=== PATIENT | male | born 1935 | race Caucasian/White ===

== ENCOUNTER 2018-08-23 20:25 | Inpatient (IN) | payer MEDICARE ==
[~2018-08-23] VITALS: Ht 167.6 cm; Wt 64.1 kg
[2018-08-23] VITALS (8 sets, daily range): BP systolic 113–145; BP diastolic 46–76; Ht 167.6 cm; Wt 64.1 kg
--- NOTE | ~2018-08-23 | HEMODYNAMI ---
PATIENT:FEDERICO QUICK MEDICAL RECORD: [id number] : 37 LOCATION:[place] [address] ADMISSION DATE: 08/23/18 Generatedon:08/24/201810:45 Patient name: FEDERICO QUICK Patient #: [id number] SSN: : 1935 Date of study: 08/24/2018 Page: Of Hemodynamic Procedure Report Patient Data Patient Demographics Procedure consent was obtained First Name: FEDERICO Gender: Male Last Name: YNES : 1935 Patient #: [id number] Age: 83 year(s) Race: Unknown Additional ID: [id number] Contact details [address]: [address] [place] [address] State: [place] City: [place] Zip code: [address] Past Medical History Allergies: No known allergies Admission Admission Data Admission Date: 08/23/2018 Admission Time: 22:28 Room #: [facility] Lab Results Lab Result Date: 08/24/2018 Lab Result Time: 0:00 Biochemistry Name Units Result Min Max BUN mg/dl 26 --(----)-* 7 18 Creatinine mg/dl 1 --(--*-)-- 0.6 1.3 CBC Name Units Result Min Max Hemoglobin g/dl 12.8 -*(----)-- 13.5 17.5 Procedure Procedure Types Cath Procedure Diagnostic Procedure C [facility] w/Coronaries Sedation Charges Moderate Sedation up to 15 minutes PCI Procedure Coronary Stent Coronary Stent Initial Coronary Stent Additional Procedure Description Procedure Date Procedure Date: 08/24/2018 Procedure Start Time: 10:20 Procedure End Time: 10:43 Procedure Staff Name Function Souleymane Carter MD Performing Physician Krista Chatterjee RT Monitor Adriano Bergman RN Nurse Tee Sanchez RT Scrub Procedure Data Cath Procedure Fluoroscopy Diagnostic fluoroscopy Total fluoroscopy Time: 6.6 time: 6.6 min min Diagnostic fluoroscopy Total fluoroscopy dose: 811 dose: 811 mGy mGy Contrast Material Contrast Material Type Amount (ml) Isovue 300 135 Entry Location Entry Primary Successful Side Size Upsize Upsize Entry Closure Succes sful Closure Location (Fr) 1 (Fr) 2 (Fr) Remarks Device Remarks Femoral Right 5 Fr 6 Fr Exoseal artery Short Estimated blood loss: 10 ml Diagnostic catheters Device Type Used For End Catheter Placement MULTIPACK Pigtail 5 Fr Procedure catheter MULTIPACK JL 4.0 5Fr Procedure catheter MULTIPACK 3DRC 5Fr Procedure catheter Procedure Complications No complications Procedure Medications Medication Administration Route Dosage Oxygen etCO2 Nasal cannula 2 l/min Lidocaine 2% added to field 20 Heparin Flush Bag added to field 2 bags (1000units/500ml NS) 0.9% NaCl I.V. 50 ml/hr Versed I.V. 1 mg Fentanyl I.V. 50 mcg Versed I.V. 1 mg Fentanyl I.V. 50 mcg Heparin Bolus I.V. 4000 units Hemodynamics Rest Heart Rate: 66 (bpm) Pressure Samples Time Site Value (mmHg) Purpose Heart Use Rate(bpm) 10:22 LV 89/1,2 Snapshot 66 Gradients Valve Time Site Site Mean SEP/DFP Peak To Heart Use 1 2 (mmHg) (sec/min) Peak Rate (mmHg) (bpm) Aortic 10:23 LV AO 58 Snapshots Pre Cath Intra NCS Post Cath Vital Signs Time Heart Resp SPO2 etCO2 NIBP (mmHg) Rhythm Pain Sedation Rate (ipm) (%) (mmHg) Status Level (bpm) 10:11:31 64 14 99 39.3 140/74(120) NSR 0 (11) 10(A) , No pain 10:15:49 70 14 98 32.5 142/73(109) NSR 0 (11) 10(A) , No pain 10:20:05 67 10 99 2.2 121/73(99) NSR 0 (11) 10(A) , No pain 10:24:19 63 12 98 0 133/69(109) NSR 0 (11) 9(A) , No pain 10:28:35 69 13 99 0 133/67(112) NSR 0 (11) 9(A) , No pain 10:32:55 67 14 96 0 127/67(104) NSR 0 (11) 9(A) , No pain 10:37:13 69 15 99 0 148/68(114) NSR 0 (11) 10(A) , No pain 10:41:39 78 19 99 46.1 146/81(105) NSR 0 (11) 10(A) , No pain Medications Time Medication Route Dose Verified Delivered Reason Notes Effectiveness by by 10:09:55 Oxygen etCO2 2 Souleymane Buffie used for Nasal l/min St Km Bergman RN procedure cannula 10:10:02 Lidocaine 2% added 20ml Souleymane Souleymane for local to vial [facility] anesthetic field MD ROSE 10:10:08 Heparin Flush added 2 Souleymane Souleymane used for Bag to bags [facility] procedure (1000units/500ml field MD ROSE NS) 10:10:17 0.9% NaCl I.V. 50 Souleymane Buffie Per physician ml/hr St Km Bergman RN, MD 10:20:12 Versed I.V. 1 mg Souleymane Lauraie for sedation St Km Bergman RN, MD 10:20:18 Fentanyl I.V. 50 Souleymane Buffie for sedation mcg [facility] Km Bergman RN, MD 10:28:21 Versed I.V. 1 mg Souleymane Sanchezie for sedation St Km Bergman RN, MD 10:28:24 Fentanyl I.V. 50 Souleymane Sanchezie for sedation mcg St Km Bergman RN, MD 10:29:48 Heparin Bolus I.V. 4000 Souleymane Sanchezie for verif ied units St Km Bergman RN anticoagulation with dr MD ngo Procedure Log Time Note 9:47:24 Tee Sanchez RT(R) sent for patient. Start room use. 9:47:25 Time tracking: Call back (After hours or weekends) 9:47:30 Plan of Care:Hemodynamics will remain stable., Cardiac rhythm will remain stable., Comfort level will be maintained., Respiratory function will remain adequate., Patient/ family verbilizes understanding of procedure., Procedure tolerated without complication., Recovers from procedure without complications.. 10:05:02 Patient received from CVICU to CCL 1 Alert and oriented. Tansferred to table in Supine position. 10:05:03 Warm blankets applied, and tayler hugger turned on for patient comfort. 10:05:04 Correct patient and procedure confirmed by team. 10:05:06 Signed procedure consent form obtained from patient. 10:05:08 ECG and BP/O2 sat monitors applied to patient. 10:05:15 H&P Date Dictated: 08/24/2018 Within 30 days and on chart., H&P Addendum completed by physician on day of procedure. (MUST COMPLETE FOR ALL OUTPATIENTS). 10:05:16 Pre-procedure instructions explained to patient. 10:09:55 Oxygen 2 l/min etCO2 Nasal cannula was administered by Adriano Bergman RN; used for procedure; 10:10:02 Lidocaine 2% 20ml vial added to field was administered by Souleymane Carter MD; for local anesthetic; 10:10:08 Heparin Flush Bag (1000units/500ml NS) 2 bags added to field was administered by Souleymane Carter MD; used for procedure; 10:10:17 0.9% NaCl 50 ml/hr I.V. was administered by Adriano Bergman RN; Per physician; 10::19 Vital chart was started 10:17:08 Family in patients room. 10:17:10 Patient NPO since Midnight. 10:17:30 Patient allergic to No known allergies 10:17:34 Is the patient allergic to Iodine/contrast media? No. 10:17:36 Was the patient premedicated? Yes 10:17:40 Is patient on blood thinner?Yes 10:17:43 ACC The patient was administered the following blood thiners within the last 24 hours: ACCPlavix 10:17:46 Patient diabetic? No. 10:17:50 Snore? Yes 10:17:53 Sleep apnea? No 10:18:00 Patient pain scale 0/10 ?. 10:18:08 IV patent on arrival in left hand with 0.9% NaCl at [facility]. 10:18:27 Lab results completed and on chart. 10:18:56 Lab Result : BUN 26 mg/dl 10:18:56 Lab Result : Hemoglobin 12.8 g/dl 10:18:56 Lab Result : Creatinine 1 mg/dl 10:19:02 Right groin area was prepped with chlora-prep and draped in sterile fashion 10:19:03 Alarms reviewed by R. N. 10:19:04 Sharps counted by scrub and verified by R.N. 10:19:04 Physician paged 10:19:05 Physician arrived 10:19:06 --------ALL STOP TIME OUT------ 10:19:06 Final Timeout: patient, procedure, and site verified with staff and physician. All members of the team are in agreement. 10:19:10 Right groin site verified by team. 10:19:13 Physical assessment completed. ASA score P 2 - A patient with mild systemic disease as per Souleymane Carter MD. 10:19:17 Sedation plan: IV Moderate Sedation Medication:Versed, Fentanyl 10:19:23 Use device set Femoral Dx 10:19:25 Procedure started. 10:19:25 Full Disclosure recording started 10:19:26 ACIST Syringe (87676) opened to sterile field. 10:19:27 Bag Decanter (2002S) opened to sterile field. 10:19:27 Medline Cath Pack ([id number]) opened to sterile field. 10:19:28 DIAGNOSTIC WIRE .035 260cm J wire (421134) opened to sterile field. 10:19:29 ACIST Hand Control (62609) opened to sterile field. 10:19:29 ACIST Manifold (14249) opened to sterile field. 10:19:30 DIAGNOSTIC Multipack 5Fr catheter set (CM1505) opened to sterile field. 10:19:51 Tegaderm 4 x 4 (1626W) opened to sterile field. 10:20:00 SHEATH 5FR [place] (ZWO632) opened to sterile field. 10:20:05 Local anesthetic to right femoral artery with Lidocaine 2% by Souleymane Carter MD.INITIAL ACCESS ONLY 10:20:12 Versed 1 mg I.V. was administered by Adriano Bergman RN; for sedation; 10:20:18 Fentanyl 50 mcg I.V. was administered by Adriano Bergman RN; for sedation; 10:21:12 A 5 Fr sheath was inserted into the Right Femoral artery 10:22:06 A MULTIPACK Pigtail 5 Fr catheter was advanced over the wire and used for Procedure. 10:22:31 LV angiography performed. 10:23:04 LV gram done using TABOR 10:23:11 EF : 50 % 10:23:13 Catheter removed. 10:23:24 A MULTIPACK JL 4.0 5Fr catheter was advanced over the wire and used for Procedure. 10:24:20 LCA angiography performed. 10:25:01 Catheter removed. 10:26:06 A MULTIPACK 3DRC 5Fr catheter was advanced over the wire and used for Procedure. 10:26:10 RCA angiography performed. 10:26:44 Catheter removed. 10:27:29 GUIDE 6FR EBU 3.5 catheter ([id number]) opened to sterile field. 10:27:30 INFLATOR Merit BasixCompak (VU3904) opened to sterile field. 10:27:30 SHEATH 6FR [place] (VRO023) opened to sterile field. 10:27:31 WHISPER 300cm guide wire ([id number]) opened to sterile field. 10:27:36 Proceeding to intervention. 10::45 Sheath upsized to a 6 Fr Short. 10::55 6 Fr EBU3.5 guide catheter was inserted over the wire 10:28:21 Versed 1 mg I.V. was administered by Adriano Bergman RN; for sedation; 10::24 Fentanyl 50 mcg I.V. was administered by Adriano Bergman RN; for sedation; 10::48 Heparin Bolus 4000 units I.V. was administered by Adriano Bergman RN; for anticoagulation; verified with dr ngo 10:30:02 Whisp wire advanced. 10:33:19 Place stent Inflation Number: 1 A SMITHA OTW 3.0 x 08 stent ([id number]) was prepped and advanced across the 1st Diag. The stent was deployed at 14 ISMA for 0:20 (min:sec). 10:35:18 Stent catheter was removed intact over wire. 10:35:25 Wire redirected to lad. 10:36:23 Place stent Inflation Number: 1 A SMITHA OTW 3.0 x 08 stent ([id number]) was prepped and advanced across the Mid LAD. The stent was deployed at 14 ISMA for 0:23 (min:sec). 10:37:17 Stent catheter was removed intact over wire. 10:37:22 Wire redirected to diag. 10:40:43 Inflate balloon Inflation number: 2 A EMERGE OTW 2.5 x 12 balloon ([id number]) was prepped and advanced across the 1st Diag, then inflated to 6 ISMA for 0:07 (min:sec). 10:41:20 EXOSEAL 6Fr (EX600) opened to sterile field. 10:41:25 Wire removed. 10:41:25 Guide catheter removed. 10:41:35 Sheath removed intact; hemostasis achieved with Exoseal to the Right Femoral artery. 10:41:37 Procedure ended.(Physican Out) 10:41:54 Fluoroscopy time 06.60 minutes. 10:41:58 Fluoroscopy dose: 811 mGy 10:41:58 Flurop Dose total: 811 10:42:02 Contrast amount:Isovue 300 135ml. 10:42:04 Sharps counted by scrub and verified by R.N. 10:42:05 Insertion/operative site no bleeding no hematoma. 10:42:10 Post right femoral artery:stable 10:42:12 Post Procedure Pulses reassessed and unchanged 10:42:16 Post procedure rhythm: unchanged. 10:42:23 Estimated blood loss: 10 ml 10:42:25 Post procedure instruction explained to patient.Patient verbalizes understanding. 10:42:26 Patient needs reinforcement of post procedure teaching. 10:43:03 Procedure type changed to Cath procedure, Diagnostic procedure, LHC, LHC w/Coronaries, Sedation Charges, Moderate Sedation up to 15 minutes, PCI procedure, Coronary Stent, Coronary Stent Initial, Coronary Stent Additional 10:43:05 Procedure and supply charges have been captured, reviewed, submitted and are correct. 10:43:28 Procedure Complication : No complications 10:43:32 Vital chart was stopped 10:43:33 See physician's report for complete and final results. 10:43:43 Report given to CVICU. 10:43:47 Patient transfered to CVICU with Bed. 10:43:49 Procedure ended. 10:43:49 Full Disclosure recording stopped 10:43:52 End room use (Document Last) Intervention Summary Intervention Notes Time ActionType Lesion and Equipment Action# Pressure Duration Attributes Used 10:33:19 Place stent 1st Diag SMITHA OTW 3.0 1 14 00:20 x 08 stent ([id number]) 10:36:23 Place stent Mid LAD SMITHA OTW 3.0 1 14 00:23 x 08 stent ([id number]) 10:40:43 Inflate 1st Diag EMERGE OTW 2 6 00:07 balloon 2.5 x 12 balloon ([id number]) Device Usage Item Name Manufacture Quantity Catalog Number Hospital Part Current M inimal Lot# / Charge Number Stock Stock Serial# Code ACIST Syringe Acist 1 41187 942012 150412 412598 2 0 (99392) Facio Inc Bag Decanter Microtek 1 2002S 938785 59286 103017 5 () Medical Inc. Medline Cath Medline 1 [id number] 627926 09541 062725 5 Pack ([id number]) DIAGNOSTIC St Boogie 1 384725 326302 188428 914016 3 0 WIRE .035 260cm J wire (961475) ACIST Hand Acist 1 07149 884759 374862 331995 5 Control Medical (15852) Systems Inc ACIST Acist 1 50327 319262 405430 265468 5 Manifold Medical (85131) Systems Inc DIAGNOSTIC Cardinal 1 GK4967 818811 50073 715266 3 0 Multipack 5Fr Health catheter set (BH2388) Tegaderm 4 x 3M 1 1626W 204047 261830 633966 5 4 (1626W) SHEATH 5FR Terumo 1 ZED126 433071 618360 902006 5 [place] (CJF365) MULTIPACK Cardinal 1 988611 5 Pigtail 5 Fr Health catheter MULTIPACK JL Cardinal 1 188798 5 4.0 5Fr Health catheter MULTIPACK Cardinal 1 742340 5 3DRC 5Fr Health catheter GUIDE 6FR EBU Medtronic 1 [id number] 612524 47260 099967 3 3.5 catheter (KL1EDC52) INFLATOR Friday 1 EF4729 586969 397055 039059 1 5 SavvyCard BasixCompak (EQ2902) SHEATH 6FR Terumo 1 ICL988 967827 399380 378020 4 0 [place] (MOA647) WHISPER 300cm Peres 1 [id number] 951748 661327 313171 5 guide wire Vascular ([id number]) SMITHA OTW 3.0 Medtronic 2 [id number] 157738 8128795 494673 5 [id number] x 08 stent [id number] ([id number]) EMERGE OTW [facility] 1 [id number] 574965 348860 710506 5 [id number] 2.5 x 12 Scientific balloon ([id number]) EXOSEAL 6Fr Cardinal 1 EX600 259587 629465 614681 1 0 (EX600) Health Signature Audit [place] Stage Time Signature Unsigned Intra-Procedure 08/24/2018 Krista Chatterjee 10:45:55 AM RT(R) Signatures Monitor : Krista Chatterjee Signature : RT Date : Time : [place] [id number] [place] [address]
[2018-08-23 21:44] LABS: CKMB 51.7 U/L (0.0-3.6); CREATINE KINASE 404 UL (21-232)
[2018-08-23 21:46] LABS: TROPONIN-I 24.034 ng/mL (0.000-0.060)
[2018-08-23] MEDS ORDERED: LISINOPRIL10 MG PO (23:09)
[2018-08-23] MEDS ORDERED: AUGMENTIN 875-11 TAB PO (23:11)
[2018-08-23] MEDS ORDERED: HCTZ25 MG PO (23:12)
[2018-08-23] MEDS ORDERED: ASPIRIN81 MG PO (23:13)
[2018-08-23] MEDS ORDERED: MELATONIN5 MG PO (23:14)
[2018-08-23] MEDS ORDERED: TYLENOL PM1 TAB PO (23:15)
[2018-08-24] VITALS (55 sets, daily range): BP systolic 105–151; BP diastolic 37–104
[2018-08-24 05:06] LABS: BASOPHILS 0.1 % (0-2); EOSINOPHILS 0 % (0-7); HEMATOCRIT 37.6 % (42.0-54.0); HEMOGLOBIN 12.8 g/dL (13.5-17.5); IMMATURE GRANULOCYTES 0.3 % (0-5); LYMPHOCYTES 8.4 % (15-50); MCH 30.6 pg (26.0-34.0); MONOCYTES 6.3 % (2-11); NEUTROPHILS 84.9 % (40-80); PLATELET COUNT 236 10x3/uL (130-400); RBC 4.18 10x6/uL (4.20-6.10); RDW 13.1 % (11.5-14.5); WBC 15.6 10x3/uL (4.8-10.8)
[2018-08-24 05:36] LABS: ALBUMIN 3.3 g/dL (3.4-5.0); ALKALINE PHOSPHATASE 47 U/L (46-116); ALT (SGPT) 33 U/L (10-68); BILIRUBIN - TOTAL 0.36 mg/dL (0.2-1.3); CALC OSMOLALITY 283 mosm/kg (275-300); CALCIUM 8.3 mg/dL (8.5-10.1); CARBON DIOXIDE 27.2 mmol/L (21.0-32.0); CHLORIDE - SERUM 101 mmol/L (98-107); CKMB 163.2 U/L (0.0-3.6); GLUCOSE 115 mg/dL (74-106); POTASSIUM - SERUM 4.6 mmol/L (3.5-5.1); PROTEIN - SERUM 6.6 g/dL (6.4-8.2); SODIUM 139 mmol/L (136-145); UREA NITROGEN 26 mg/dL (7-18); eGFR NON AFRICAN AMERICAN 76 mL/min (90-120)
[2018-08-24 08:45] LABS: ANION GAP 17.9 mmol/L (8-16); CALCIUM 8.8 mg/dL (8.5-10.1); CARBON DIOXIDE 24.7 mmol/L (21.0-32.0); CREATININE - SERUM 1.1 mg/dL (0.6-1.3); POTASSIUM - SERUM 4.6 mmol/L (3.5-5.1)
[2018-08-25] VITALS: BP 140/70
[2018-08-25 02:00] VITALS: BP 129/54
[2018-08-25 03:01] VITALS: BP 110/51
[2018-08-25 04:00] VITALS: BP 112/50
[2018-08-25 05:01] VITALS: BP 128/52
[2018-08-25 07:36] LABS: CALC OSMOLALITY 284 mosm/kg (275-300); CALCIUM 8.3 mg/dL (8.5-10.1); CHLORIDE - SERUM 104 mmol/L (98-107); CKMB 16.6 U/L (0.0-3.6); CREATINE KINASE 382 UL (21-232); CREATININE - SERUM 0.7 mg/dL (0.6-1.3); GLUCOSE 100 mg/dL (74-106); SODIUM 141 mmol/L (136-145); TROPONIN-I 18.017 ng/mL (0.000-0.060); UREA NITROGEN 23 mg/dL (7-18); eGFR NON AFRICAN AMERICAN > 90 mL/min (90-120)
[2018-08-25] MEDS ORDERED: PLAVIX75 MG (09:45)
--- NOTE | 2018-08-25 11:24 | MORECARE ---
CASE MANAGEMENT DISCHARGE SUMMARY PATIENT: FEDERICO QUICK UNIT: [id number] ADM DATE: 08/23/18 AGE: 83 : 36 SEX: M [facility] AUTHOR: MARY PHILLIPS PHYSICIAN: REFERRING PHYSICIAN: JAMES AVILA MD DATE OF SERVICE: 08/25/18 Discharge Plan Patient Name[facility] FED[facility]ICO QUICK [facility] [facility] 1935 Planned Disposition: Home Anticipated Discharge Date: Discharge Date: Expected LOS: Initial Reviewer: [email or web address] Initial Review Date: 08/23/2018 Generated: 08/25/18 12:24 pm Patient Name: FEDERICO QUICK Page 94823 at 1124 All edits/amendments must be made on the electronic document DICTATION DATE: 08/25/18 1123 METAL CEILING HANGER: MOISÉS 08/25/18 1123 RPT#: [id number] DC DATE: STATUS: ADM IN [facility] [address] [place] [address] END OF REPORT
--- NOTE | 2018-08-25 11:34 | MORECARE ---
CASE MANAGEMENT DISCHARGE SUMMARY PATIENT: FEDERICO QUICK UNIT: [id number] ADM DATE: 08/23/18 AGE: 83 : 36 SEX: M ROOM/BED: D[facility] AUTHOR: MARY PHILLIPS PHYSICIAN: REFERRING PHYSICIAN: JAMES AVILA MD DATE OF SERVICE: 08/25/18 Discharge Plan Patient Name: FEDERICO QUICK [facility] [facility] 1935 Planned Disposition: Home Anticipated Discharge Date: Discharge Date: 08/25/2018 Expected LOS: Initial Reviewer: [email or web address] Initial Review Date: 08/23/2018 Generated: 08/25/18 12:34 pm DCPIA - Discharge Planning Initial Assessment Updated by [email or web address]: Noa Alegria on 08/25/18 11:25 am * Is the patient Alert and Oriented? Yes * How many steps to enter\exit or inside your home? * PCP ADDIE MILLS [phone] * Preadmission Environment Home with Family * ADLs Independent * Equipment Walker * List name and contact numbers for known caregivers / representatives who currently or will assist patient after discharge: NOEL QUICK -SPOUSE- [phone] * Verbal permission to speak to the caregivers and representatives has been obtained from the patient. Yes * Community resources currently utilized None * Additional services required to return to the preadmission environment? No * Can the patient safely return to the preadmission environment? Yes * Has this patient been hospitalized within the prior 30 days at any hospital? No Last DP export: 08/25/18 10:24 am Patient Name: FEDERICO QUICK Page 91313 at 1134 All edits/amendments must be made on the electronic document DICTATION DATE: 08/25/18 1133 DIESEL DINKEY OPERATOR: MOISÉS 08/25/18 1133 RPT#: [id number] DC DATE:08/25/18 STATUS: DIS IN [facility] [address] [place] [address] END OF REPORT
--- NOTE | 2018-08-25 11:42 | MORECARE ---
CASE MANAGEMENT DISCHARGE SUMMARY PATIENT: FEDERICO QUICK UNIT: [id number] ADM DATE: 08/23/18 AGE: 83 : 36 SEX: M ROOM/BED: D.[facility] AUTHOR: JACQUELINE,DOC PHYSICIAN: REFERRING PHYSICIAN: JAMES AVILA MD DATE OF SERVICE: 08/25/18 Discharge Plan Patient Name: FEDERICO QUICK Facility: [facility]:[place] : 1935 Planned Disposition: Home Anticipated Discharge Date: Discharge Date: 08/25/2018 Expected LOS: Initial Reviewer: [email or web address] Initial Review Date: 08/23/2018 Generated: 08/25/18 12:42 pm Comments DCP- Discharge Planning Updated by [email or web address]: Noa Alegria on 08/25/18 10:[address] Late Entry 08/25/17 @ 0915 Patient Name: FEDERICO QUICK Admission Status: ER Accout number: [id number] Admission Date: 08-23-2018 : 1935 Admission Diagnosis: Attending: JAMES AVILA Current LOS: 2 Anticipated DC Date: Planned Disposition: Home Primary Insurance: [facility] MEDICARE SOLUTIONS Discharge Planning Comments: CM met with patient at bedside. Patient plans to return home with his . Patients will pick him up and transport home upon discharge. Patient denies any discharge needs. CM will continue to follow and assist with discharge planning / needs. Internet Specialist: Noa Alegria DCPIA - Discharge Planning Initial Assessment Updated by [email or web address]: Noa Alegria on 08/25/18 11:25 am * Is the patient Alert and Oriented? Yes * How many steps to enter\exit or inside your home? * PCP ADDIE MILLS [phone] * Preadmission Environment Home with Family * ADLs Independent * Equipment Walker * List name and contact numbers for known caregivers / representatives who currently or will assist patient after discharge: NOEL QUICK -SPOUSE- [phone] * Verbal permission to speak to the caregivers and representatives has been obtained from the patient. Yes * Community resources currently utilized None * Additional services required to return to the preadmission environment? No * Can the patient safely return to the preadmission environment? Yes * Has this patient been hospitalized within the prior 30 days at any hospital? No Last DP export: 08/25/18 10:34 am Patient Name: FEDERICO QUICK Page 38297 at 1142 All edits/amendments must be made on the electronic document DICTATION DATE: 08/25/18 1141 CHEMICAL BLENDER: MOISÉS 08/25/18 1141 RPT#: [id number] DC DATE:08/25/18 STATUS: DIS IN [facility] [address] [place] [address] END OF REPORT
--- NOTE | 2018-08-25 12:20 | MORECARE ---
CASE MANAGEMENT DISCHARGE SUMMARY PATIENT: FEDERICO QUICK UNIT: [id number] ADM DATE: 08/23/18 AGE: 83 : 36 SEX: M ROOM/BED: D[facility] AUTHOR: JACQUELINE,DOC PHYSICIAN: REFERRING PHYSICIAN: JAMES AVILA MD DATE OF SERVICE: 08/25/18 Discharge Plan Patient Name: FEDERICO QUICK Facility: [facility]:[place] : 1935 Planned Disposition: Home Anticipated Discharge Date: Discharge Date: 08/25/2018 Expected LOS: Initial Reviewer: [email or web address] Initial Review Date: 08/23/2018 Generated: 08/25/18 1:20 pm Comments DCP- Discharge Planning Updated by [email or web address]: Noa Alegria on 08/25/18 10:[address] Late Entry 08/25/17 @ 0915 Patient Name: FEDERICO QUICK Admission Status: ER Accout number: [id number] Admission Date: 08-23-2018 : 1935 Admission Diagnosis: Attending: JAMES AVILA Current LOS: 2 Anticipated DC Date: Planned Disposition: Home Primary Insurance: [facility] MEDICARE SOLUTIONS Discharge Planning Comments: CM met with patient at bedside. Patient plans to return home with his . Patients will pick him up and transport home upon discharge. Patient denies any discharge needs. CM will continue to follow and assist with discharge planning / needs. Forestry Fire Aid: Noa Alegria DCPIA - Discharge Planning Initial Assessment Updated by [email or web address]: Noa Alegria on 08/25/18 11:25 am * Is the patient Alert and Oriented? Yes * How many steps to enter\exit or inside your home? * PCP ADDIE MILLS [phone] * Preadmission Environment Home with Family * ADLs Independent * Equipment Walker * List name and contact numbers for known caregivers / representatives who currently or will assist patient after discharge: NOEL QUICK -SPOUSE- [phone] * Verbal permission to speak to the caregivers and representatives has been obtained from the patient. Yes * Community resources currently utilized None * Additional services required to return to the preadmission environment? No * Can the patient safely return to the preadmission environment? Yes * Has this patient been hospitalized within the prior 30 days at any hospital? No Last DP export: 08/25/18 10:42 am Patient Name: FEDERICO QUICK Page 55601 at 1220 All edits/amendments must be made on the electronic document DICTATION DATE: 08/25/18 1220 TAR POT WORKER: MOISÉS 08/25/18 1220 RPT#: [id number] DC DATE:08/25/18 STATUS: DIS IN [facility] [address] [place] [address] END OF REPORT
--- NOTE | 2018-08-26 13:57 | OP ---
PATIENT NAME: FEDERICO QUICK MEDICAL RECORD: [id number] :[birth year] LOCATION:[place] [facility].CV03 ADMISSION DATE:08/23/18 SURGEON: JAMES AVILA MD DATE OF OPERATION: 08/24/2018 PROCEDURE: Left heart catheterization, selective coronary angiography, right femoral artery approach. CATHETERS: A 5-Pakistani sheath, 5/4 left and right Nova, 5/4 pig. The procedure was well tolerated, the sheath removed. ExoSeal device placed. FINDINGS: Left ventriculography shows anterior and anterior apical hypokinesis. Overall, function appears at least at the lower limits of normal at 50%. CORONARY ANATOMY: LEFT MAIN: Left main is free of disease. LAD: Has a tight lesion of 90%, right at the takeoff of the first diagonal. 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 Diagonal itself has a ring-like lesion at its mid portion and it is a large vessel and is free of disease. CIRCUMFLEX: The circumflex has 80% stenosis, best seen in the KELSI caudal view. RIGHT CORONARY ARTERY: Has about 50% stenosis, somewhat diffuse in its mid portion. PLAN: Intervention to the LAD and diagonal and circumflex at a later date. DESCRIPTION OF PROCEDURE: A 5-Pakistani sheath was exchanged for a 6-Pakistani sheath. An EBU 3.5 catheter provided good guide catheter support. Initially a 3.0 was brought and placed across the 80% stenosed D-1 in the mid portion and I had this addressed with a 3.0 x 8 mm [place] drug-eluting stent. We did place a wire across the LAD, 80% stenosis addressed with a 3.0 x 8 mm [place] nondrug-eluting stent. IMPRESSION: Successful PTCA and stenting of diagonal 1 as well as LAD, return for stenting of the circumflex at a later date. TRANSINT:[id number] Voice Confirmation ID: [id number] DOCUMENT ID: [id number] JAMES AVILA MD at 1357 CC: [id number] DICTATION DATE: 08/24/18 1050 DIRECTOR HYDROGEN STORAGE ENGINEERING: 08/24/182100 DIS IN 08/25/18 [place] [id number] [place] [address]
--- NOTE | 2018-08-26 13:57 | HP ---
PATIENT: CYN QUICK MEDICAL RECORD: [id number] ACCOUNT: [id number] LOCATION:[facility] [id number] : 36 ADMISSION DATE: 08/23/18 PCP: No PCP HISTORY AND PHYSICAL EXAMINATION HISTORY: Cyn Quick is an 83-year-old gentleman with history of mild regurgitation, followed by Dr. Sanderson. He has history of hypertension. He stays quite active at 83 years of age. He presented to [facility] with classic cardiac symptomatology of dyspnea; shortness of breath; chest tightness and pressure, radiating to the jaw. Found to have new-onset left bundle. He received thrombolytics and transferred here. He did reperfuse with already washout of cardiac enzymes, consistent with reperfusion. He is being brought to laborer tanbark for delineation of anatomy. PAST MEDICAL HISTORY: Includes; 1. History of hypertension. 2. Mitral regurgitation. ALLERGIES: None known. MEDICATIONS: Typically, include lisinopril 10 mg p.o. daily, hydrochlorothiazide 25 daily, and aspirin 81 daily. SOCIAL HISTORY: Lives in [place]. Nonsmoker and nondrinker. He takes care of his ADLs. REVIEW OF SYSTEMS: The patient reports easy bruising but reports no swollen glands. The patient reports no fever, no night sweats, no significant weight gain, no significant weight loss. No significant exercise tolerance. The patient reports no dry eyes, no irritation, no vision change. Patient reports no difficulty hearing and no ear pain. Patient reports no frequent nose bleeds or nose and sinus problems. Patient reports on arm pain on exertion. No shortness of breath while lying down. No history of heart murmur. Patient reports no cough, no wheezing or coughing up blood. Patient reports no abdominal pain, no vomiting. Normal appetite. No diarrhea and not vomiting blood. No nausea and no constipation. Patient reports no incontinence. No difficulty urinating. No hematuria. No increased frequency. Patient reports no muscle aches. No weakness, no arthralgias, no back pain. No swelling of the extremities. Patient reports no abnormal mole, no jaundice, no rashes. Reports no loss of consciousness. No weakness and no numbness. No seizures, dizziness, or headaches. The patient reports no depression, no sleep disturbance, feeling safe in a relationship and no alcohol abuse. Patient reports on fatigue. Reports no runny nose or sinus pressure. No itching, no hives, and no frequent sneezing. PHYSICAL EXAMINATION: GENERAL: Pleasant gentleman, in no acute distress, appears younger than his stated age. VITAL SIGNS: Blood pressure 123/53. Pulse 68 and regular. HEENT: Normocephalic and atraumatic. NECK: No JVD or bruit. HEART: Regular. II/ systolic ejection murmur, heard best primarily in mitral area. LUNGS: Good air excursion. ABDOMEN: Soft and nontender. Pulses 2+. There is no edema. HISTORY AND PHYSICAL [id number] CYN QUICK NEUROLOGIC: Grossly intact. DIAGNOSTIC DATA: ECG shows nonspecific ST-T changes anterolaterally. IMPRESSION: Acute myocardial infarction, suspect LAD lesion given new onset of left bundle. Further recommendations based on anatomy. TRANSINT:[id number] Voice Confirmation ID: [id number] DOCUMENT ID: [id number] JAMES AVILA MD at 1357 CC: [id number] DICTATION DATE: 08/24/18922 COMMERCIAL CRABBER: 08/24/18 1241 DIS IN 08/25/18 [facility] [address] [place] [address]
== END 2018-08-25 11:28 | disposition home or self-care (01) | DRG 247 ==
LOC: EDSEX 20:25 → D.ER 20:25 → D.CVICU 22:28
PROVIDERS: Emergency Medicine; ADMIT Internal Medicine Interventional Cardiology
PROC: B2111ZZ Fluoroscopy of Multiple Coronary Arteries using Low Osmolar Contrast (ICD-10-PCS; 2018-08-24)
PROC: B2151ZZ Fluoroscopy of Left Heart using Low Osmolar Contrast (ICD-10-PCS; 2018-08-24)
PROC: 027135Z Dilation of Coronary Artery, Two Arteries with Two Drug-eluting Intraluminal Devices, Percutaneous Approach (ICD-10-PCS; principal; 2018-08-24 09:47)
PROC: 4A023N7 Measurement of Cardiac Sampling and Pressure, Left Heart, Percutaneous Approach (ICD-10-PCS; 2018-08-24 09:47)
DX: I21.9 Acute myocardial infarction, unspecified (principal); I44.7 Left bundle-branch block, unspecified; I10 Essential (primary) hypertension

== ENCOUNTER 2018-09-14 10:45 | Outpatient (CLI) | payer MEDICARE ==
[~2018-09-14] VITALS: Ht 167.6 cm; Wt 63.6 kg
--- NOTE | ~2018-09-14 | HEMODYNAMI ---
PATIENT:FEDERICO QUICK MEDICAL RECORD: [id number] : 37 LOCATION:[facility] ADMISSION DATE: 09/14/18 Generatedon:09/14/201814:31 Patient name: FEDERICO QUICK Patient #: [id number] SSN: : 1935 Date of study: 09/14/2018 Page: Of Hemodynamic Procedure Report Patient Data Patient Demographics Procedure consent was obtained First Name: FEDERICO Gender: Male Last Name: YNES : 1935 Middle Initial: EDWARD Age: 83 year(s) Patient #: [id number] Race: Unknown Additional ID: [id number] Contact details [address]: [address] [place] [address] State: [place] City: [place] Zip code: [address] Past Medical History Allergies: No known allergies Admission Admission Data Admission Date: 09/14/2018 Admission Time: 10:45 Procedure Procedure Types Cath Procedure PCI Procedure Coronary Stent Coronary Stent Initial Procedure Description Procedure Date Procedure Date: 09/14/2018 Procedure Start Time: 14:19 Procedure End Time: 14:28 Procedure Staff Name Function Souleymane Carter MD Performing Physician Elissa Young RT Monitor Cj Hurd RN Nurse Adonis Jones RT Scrub Procedure Data Cath Procedure Fluoroscopy Diagnostic fluoroscopy Total fluoroscopy Time: 2.4 time: 2.4 min min Diagnostic fluoroscopy Total fluoroscopy dose: 228 dose: 228 mGy mGy Contrast Material Contrast Material Type Amount (ml) Isovue 300 37 Entry Location Entry Primary Successful Side Size Upsize Upsize Entry Closure Succes sful Closure Location (Fr) 1 (Fr) 2 (Fr) Remarks Device Remarks Femoral Right 6 Fr Exoseal artery Short Estimated blood loss: 5 ml Procedure Complications No complications Procedure Medications Medication Administration Route Dosage 0.9% NaCl I.V. 100 ml/hr Oxygen etCO2 Nasal cannula 2 l/min Heparin Flush Bag added to field 2 bags (1000units/500ml NS) Lidocaine 2% added to field 20 Versed I.V. 1 mg Fentanyl I.V. 50 mcg Heparin Bolus I.V. 5000 units Hemodynamics Rest Heart Rate: 65 (bpm) Snapshots Pre Cath Intra NCS Post Cath Vital Signs Time Heart Resp SPO2 etCO2 NIBP (mmHg) Rhythm Pain Sedation Rate (ipm) (%) (mmHg) Status Level (bpm) 14:07:49 62 23 100 34.4 156/80(100) NSR 0 (11) 10(A) , No pain 14:12:09 57 13 100 35.2 143/71(121) NSR 0 (11) 10(A) , No pain 14:16:23 50 12 100 36.7 145/71(108) NSR 0 (11) 10(A) , No pain 14:20:33 71 21 100 31.4 163/88(137) NSR 0 (11) 9(A) , No pain 14:24:51 59 20 100 32.2 150/79(134) NSR 0 (11) 9(A) , No pain Medications Time Medication Route Dose Verified Delivered Reason Notes Effectiveness by by 14:08:50 0.9% NaCl I.V. 100 Cj Cj Per physician ml/hr Vickey Hurd RN RN 14:09:00 Oxygen etCO2 2 Cj Cj Per physician Nasal l/min Vickey Hurd cannula RN RN 14:09:11 Heparin Flush added 2 Cj Cj used for Bag to bags Vickey Hurd procedure (1000units/500ml field WEBSTER RN NS) 14:09:22 Lidocaine 2% added 20ml Cj Cj for local to vial Vickey Hurd anesthetic field WEBSTER RN 14:16:15 Versed I.V. 1 mg Cj Cj for sedation Vickey Hurd RN RN 14:16:24 Fentanyl I.V. 50 Cj Cj for sedation mcg Vickey Hurd RN RN 14:21:32 Heparin Bolus I.V. 5000 Cj Cj for units Vickey Hurd anticoagulation RN cage manager Log Time Note 13:42:29 Diagnostic Cath status Elective 13:42:31 Adonis Jones RT(R) sent for patient. Start room use. 13:42:32 Time tracking: Regular hours (M-F 7:00 - 5:00) 13:42:38 Plan of Care:Hemodynamics will remain stable., Cardiac rhythm will remain stable., Comfort level will be maintained., Respiratory function will remain adequate., Patient/ family verbilizes understanding of procedure., Procedure tolerated without complication., Recovers from procedure without complications.. 13:56:08 Patient received from Pre/Post Procedure Room to CCL 2 Alert and oriented. Tansferred to table in Supine position. 13:56:10 Warm blankets applied, and tayler hugger turned on for patient comfort. 13:56:10 Correct patient and procedure confirmed by team. 13:56:11 Signed procedure consent form obtained from patient. 13:56:12 ECG and BP/O2 sat monitors applied to patient. 14:06:37 Vital chart was started 14:06:39 Baseline sample Acquired. 14:07:08 Rhythm: sinus rhythm 14:07:09 Full Disclosure recording started 14:07:15 H&P Date Dictated: 09/14/2018 Within 30 days and on chart., H&P Addendum completed by physician on day of procedure. (MUST COMPLETE FOR ALL OUTPATIENTS). 14:07:17 Pre-procedure instructions explained to patient. 14:07:17 Pre-op teaching completed and patient verbalized understanding. 14:07:18 Family in waiting room. 14:07:19 Patient NPO since Midnight. 14:07:22 Is the patient allergic to Iodine/contrast media? No. 14:07:23 Was the patient premedicated? No 14:07:28 Is patient on blood thinner?Yes 14:07:31 ACC The patient was administered the following blood thiners within the last 24 hours: ACCPlavix 14:08:50 0.9% NaCl 100 ml/hr I.V. was administered by Cj Hurd RN; Per physician; 14:09:00 Oxygen 2 l/min etCO2 Nasal cannula was administered by Cj Hurd RN; Per physician; 14:09:11 Heparin Flush Bag (1000units/500ml NS) 2 bags added to field was administered by Cj Hurd RN; used for procedure; 14:09:22 Lidocaine 2% 20ml vial added to field was administered by Cj Hurd RN; for local anesthetic; 14:09:30 Patient diabetic? No. 14:09:32 Previous problem with sedation/anesthesia? No ? 14:09:34 Snore? Yes 14:09:35 Sleep apnea? No 14:09:36 Deviated septum? No 14:09:36 Opens mouth fully? Yes 14:09:37 Sticks out tongue? Yes 14:09:39 Airway obstruction? No ? 14:09:44 Dentures? Yes in tight 14:09:49 Pre procedure: right dorsailis pedis pulse 2+ Normal; easily identifiable; not easily obliterated 14:09:51 Pre procedure: left dorsailis pedis pulse 2+ Normal; easily identifiable; not easily obliterated 14:09:53 Patient pain scale 0/10 ?. 14:10:01 IV patent on arrival in left forearm with 0.9% NaCl at [facility]. 14:10:03 Lab results completed and on chart. 14:10:06 Right groin area was prepped with chlora-prep and draped in sterile fashion 14:10:07 Alarms reviewed by R. N. 14:10:07 Sharps counted by scrub and verified by R.N. 14:10:10 Physician arrived 14:10:10 --------ALL STOP TIME OUT------ 14:10:11 Final Timeout: patient, procedure, and site verified with staff and physician. All members of the team are in agreement. 14:10:13 Right groin site verified by team. 14:11:35 Physical assessment completed. ASA score P 2 - A patient with mild systemic disease as per Souleymane Carter MD. 14:11:38 Sedation plan: IV Moderate Sedation Medication:Versed, Fentanyl 14:13:57 Use device set [place] PCI 14:13:59 INFLATOR Merit BasixCompak ([id number]) opened to sterile field. 14:14:05 WHISPER 300cm guide wire ([id number]) opened to sterile field. 14:14:13 GUIDE 6FR EBU 3.5 catheter ([id number]) opened to sterile field. 14:14:17 SHEATH 6FR [place] (ZJA842) opened to sterile field. 14:14:22 Use device set Acist 14:14:25 ACIST Syringe (34520) opened to sterile field. 14:14:26 ACIST Hand Control (79981) opened to sterile field. 14:14:26 ACIST Manifold (51757) opened to sterile field. 14:14:56 DIAGNOSTIC WIRE .035 260cm J wire (254177) opened to sterile field. 14:16:15 Versed 1 mg I.V. was administered by Cj Hurd RN; for sedation; 14:16:24 Fentanyl 50 mcg I.V. was administered by Cj Hurd RN; for sedation; 14:19:35 Procedure started. 14:19:38 Local anesthetic to right femoral artery with Lidocaine 2% by Souleymane Carter MD.INITIAL ACCESS ONLY 14:19:46 A 6 Fr Short sheath was inserted into the Right Femoral artery 14::53 6 Fr ebu 3.5 guide catheter was inserted over the wire 14::59 whisper wire advanced. 14:20:01 Wire advanced across lesion. 14:21:32 Heparin Bolus 5000 units I.V. was administered by Cj Hurd RN; for anticoagulation; 14:24:43 Place stent Inflation Number: 1 A SMITHA OTW 3.0 x 22 stent ([id number]) was prepped and advanced across the Mid CX. The stent was deployed at 14 ISMA for 0:45 (min:sec). 14:25:00 Stent catheter was removed intact over wire. 14:25:01 Wire removed. 14:25:01 Guide catheter removed. 14::38 EXOSEAL 6Fr (EX600) opened to sterile field. 14::52 Sheath removed intact; hemostasis achieved with Exoseal to the Right Femoral artery. 14:25:55 Procedure ended.(Physican Out) 14:26:28 Fluoroscopy time 02.40 minutes. 14::31 Fluoroscopy dose: 228 mGy 14::31 Flurop Dose total: 228 14::50 Contrast amount:Isovue 300 37ml. 14::52 Sharps counted by scrub and verified by R.N. 14:27:36 Insertion/operative site no bleeding no hematoma. 14:27:38 Post-op/insertion site Right Femoral artery dressed using a 4 x 4 and Tegaderm. 14:27:41 Post right femoral artery:stable 14:27:42 Post Procedure Pulses reassessed and unchanged 14:27:45 Post procedure rhythm: unchanged. 14:27:50 Estimated blood loss: 5 ml 14:27:52 Post procedure instruction explained to patient.Patient verbalizes understanding. 14::52 Patient needs reinforcement of post procedure teaching. 14:27:59 Procedure and supply charges have been captured, reviewed, submitted and are correct. 14:28:02 Procedure Complication : No complications 14:28:05 Vital chart was stopped 14:28:06 See physician's report for complete and final results. 14:28:15 Report given to Pre/Post Procedure Room. 14:28:17 Patient transfered to Pre/Post Procedure Room with Stretcher. 14:28:20 Procedure ended. 14:28:20 Full Disclosure recording stopped 14:29:15 ACC-PCI Only Patient was given prescriptions, or instructed by Souleymane Carter MD to start/continue the following medications upon discharge: Plavix 14:29:17 End room use (Document Last) Intervention Summary Intervention Notes Time ActionType Lesion and Equipment Action# Pressure Duration Attributes Used 14:24:43 Place stent Mid CX SMITHA OTW 3.0 1 14 00:45 x 22 stent ([id number]) Device Usage Item Name Manufacture Quantity Catalog Hospital Part Current Mini mal Lot# / Number Charge Number Stock Stock Serial# Code INFLATOR [facility] 1 [id number] 794261 245358 15 [facility] BasixCompak (UV1823) WHISPER 300cm Peres 1 [id number] 865497 656760 406664 5 guide wire Vascular ([id number]) GUIDE 6FR EBU Medtronic 1 [id number] 741784 58027 528467 3 3.5 catheter ([id number]) SHEATH 6FR Terumo 1 DDT557 362123 109830 801145 40 [place] (AZR850) ACIST Syringe Acist 1 68789 419974 805335 101716 20 (69485) Medical Systems Inc ACIST Hand Acist 1 95896 096815 700598 316921 5 Control Medical (09729) Systems Inc ACIST Acist 1 76363 855652 931014 303707 5 Manifold Medical (59333) Systems Inc DIAGNOSTIC St [place] 1 036167 014038 546135 785200 30 WIRE .035 260cm J wire (130890) SMITHA OTW 3.0 Medtronic 1 [id number] 309557 1736644 709086 5 [id number] x 22 stent ([id number]) EXOSEAL 6Fr Cardinal 1 EX600 833208 908262 570452 10 (EX600) Health Signature Audit [place] Stage Time Signature Unsigned Intra-Procedure 09/14/2018 Elissa Young 2:31:20 PM RT(R) Signatures Monitor : Elissa Young RT Signature : Date : Time : [address] [place] [address]
[~2018-09-14 10:45] MED LIST: ASPIRIN81 MG PO; AUGMENTIN 875-11 TAB PO; HCTZ25 MG PO; LISINOPRIL10 MG PO; MELATONIN5 MG PO; PLAVIX75 MG; TYLENOL PM1 TAB PO
[2018-09-14] MEDS ORDERED: LIPITOR10 MG PO (11:21)
[2018-09-14 11:32] VITALS: BP 158/73; Ht 167.6 cm; Wt 63.6 kg
[2018-09-14 11:49] LABS: BASOPHILS 0.6 % (0-2); EOSINOPHILS 1.1 % (0-7); HEMATOCRIT 40.2 % (42.0-54.0); IMMATURE GRANULOCYTES 0.2 % (0-5); MCH 30.8 pg (26.0-34.0); MCHC 34.8 g/dL (31.0-37.0); MCV 88.5 fL (80.0-100.0); MEAN PLATELET VOLUME 10.6 fL (7.4-10.4); MONOCYTES 8.4 % (2-11); NEUTROPHILS 58.7 % (40-80); PLATELET COUNT 213 10x3/uL (130-400); RBC 4.54 10x6/uL (4.20-6.10); RDW 12.7 % (11.5-14.5); WBC 5.3 10x3/uL (4.8-10.8)
[2018-09-14 12:00] LABS: CALC OSMOLALITY 279 mosm/kg (275-300); CALCIUM 8.9 mg/dL (8.5-10.1); CARBON DIOXIDE 28.9 mmol/L (21.0-32.0); CHLORIDE - SERUM 99 mmol/L (98-107); CREATININE - SERUM 0.9 mg/dL (0.6-1.3); GLUCOSE 101 mg/dL (74-106); POTASSIUM - SERUM 3.6 mmol/L (3.5-5.1); SODIUM 139 mmol/L (136-145); UREA NITROGEN 18 mg/dL (7-18); eGFR NON AFRICAN AMERICAN 86 mL/min (90-120)
--- NOTE | 2018-09-14 14:40 | NUR ---
PT RECEIVED VIA STRETCHER FROM DESIGN TECHNICIAN FOR RECOVERY. PT SLEEPY BUT AROUSABLE TO VERBAL STIMULI. HR NSR RATE 66, BP 134/69, O2 ON A2 2L/NC SAT 97. PT INSTRUCTED TO KEEP HEAD FLAT AND R LEG STRAIGHT, PT VERBALIZES UNDERSTANDING. 6 FR EXOCELE TO R GROIN, DRESSING CDI NO BLEEDING OR HEMATOMA NOTED. CALL LIGHT IN REACH. DENIES PAIN OR NAUSEA.
--- NOTE | 2018-09-14 15:00 | NUR ---
PT SLEEPING QUIETLY W EYES CLOSED. HR SINUS ADRIANA RATE 54. R GROIN DRESSING CDI, NO BLEEDING OR SWELLING NOTED. CALL LIGHT IN REACH.
--- NOTE | 2018-09-14 15:30 | NUR ---
PT RESTING QUIETLY, DENIES PAIN OR NEEDS. R GROIN DRESSING CDI NO BLEEDING OR HEMATOMA NOTED. PEDAL PULSE IN R FOOT PALPABLE. CALL LIGHT IN REACH.
--- NOTE | 2018-09-14 15:45 | NUR ---
R GROIN DRESSING REMAINS CDI NO BLEEDING OR HEMATOMA NOTED. DENIES PAIN OR NEEDS. SIPS OF WATER GIVEN PER REQUEST.
--- NOTE | 2018-09-14 16:15 | NUR ---
PT RESTING QUIETLY, VOIDED IN URINAL SMALL AMT OF CLEAR YELLOW URINE. GROIN REMAINS W/O BLEEDING OR SWELLING. DRESSING CDI. DENIES PAIN OR NEEDS. CALL LIGHT IN REACH.
--- NOTE | 2018-09-14 16:45 | NUR ---
PT REMAINS RESTING W EYES CLOSED, R GROIN DRESSING CDI, NO HEMATOMA OR BLEEDING NOTED. DRESSING IN PLACE, CDI. CALL LIGHT IN REACH, DENIES NEEDS.
--- NOTE | 2018-09-14 17:30 | NUR ---
PATIENT AWAKE, HEAD OF BED ELEVATED TO 30 DEGREES. RIGHT GROIN DRESSING IS CDI, NO S/S OF BLEEDING OR HEMATOMA NOTED. PATIENT EATING TURKEY SANDWICH, NO N/V. VSS ON ROOM AIR.
--- NOTE | 2018-09-14 18:00 | NUR ---
PATIENT AND SPOUSE GIVEN DISCHARGE INSTRUCTIONS, ALL QUESTIONS ANSWERED. IV REMOVED AT THIS TIME. VSS ON ROOM AIR. RIGHT GROIN DRESSING IS CDI, NO S/S OF BLEEDING OR HEMATOMA.
--- NOTE | 2018-09-25 12:54 | OP ---
PATIENT NAME: FEDERICO QUICK MEDICAL RECORD: [id number] :37 LOCATION:[facility] ADMISSION DATE: SURGEON: JAMES AVILA MD DATE OF OPERATION: 09/14/2018 PROCEDURE: PTCA and stent to circumflex. DESCRIPTION OF PROCEDURE: After 6-Amharic sheath was placed in right femoral artery, EBU 3.5 guiding catheter provided good guide catheter support followed by 300-cm Whisper wire was placed across the 80% stenosed circumflex down this portion of this vessel. Stent deployed was a 3.0 x 22-mm Resolute drug-eluting stent up to 14 atmospheres. Final angiography shows excellent resolution of an 80% stenosis with no significant residual. BENIGNO flow was 3 throughout the procedure. Heparin and Integrilin were used in the case. Sheath was closed with ExoSeal device. TRANSINT:[id number] Voice Confirmation ID: [id number] DOCUMENT ID: [id number] JAMES AVILA MD at 1254 CC: [id number] DICTATION DATE: 09/14/18 1517 YARDER ENGINEER: 09/14/18 1723 DEP CLI 09/14/18 [facility] [address] [place] [address]
--- NOTE | 2018-09-25 12:54 | HP ---
PATIENT: FEDERICO QUICK MEDICAL RECORD: [id number] ACCOUNT: [id number] LOCATION:[facility] : 36 ADMISSION DATE: 09/14/18 PCP: HAWA BARNES MD HISTORY AND PHYSICAL EXAMINATION HISTORY: An 83-year-old gentleman with history of coronary artery disease, status post recent intervention. He presented to the hospital with acute coronary syndrome. He was found to have residual disease and brought in for revascularization of the circumflex. PAST MEDICAL HISTORY: Includes; 1. History of hypertension. 2. Hyperlipidemia. MEDICATIONS: Include hydrochlorothiazide 25 daily, lisinopril 10 daily, and metoprolol 50 b.i.d. PHYSICAL EXAMINATION: GENERAL: Elderly gentleman, in no acute distress. HEENT: Normocephalic and atraumatic. NECK: No JVD or bruit. HEART: Regular. LUNGS: [place] are clear. EXTREMITIES: Pulses 2+ with no edema. IMPRESSION: Residual disease of circumflex. PLAN: Intervention of vessel. TRANSINT:[id number] Voice Confirmation ID: [id number] DOCUMENT ID: [id number] JAMES AVILA MD at 1254 CC: [id number] DICTATION DATE: 09/14/18 1309 COLLECTIONS AND ARCHIVES DIRECTOR: 09/14/18 1332 DEP CLI 09/14/[address] [address]
== END 2018-09-14 18:00 ==
LOC: D.CATH 10:45
PROVIDERS: Internal Medicine Interventional Cardiology
DX: I25.10 Atherosclerotic heart disease of native coronary artery without angina pectoris (principal)

== ENCOUNTER 2019-09-05 20:27 | Inpatient (IN) | payer MEDICARE ==
[~2019-09-05] VITALS: Ht 167.6 cm; Wt 62.3 kg
--- NOTE | ~2019-09-05 | HEMODYNAMI ---
PATIENT:FEDERICO QUICK MEDICAL RECORD: [id number] : 37 [facility] [facility]# [id number] ADMISSION DATE: 09/05/19 Generatedon:09/06/201911:37 Patient name: FEDERICO QUICK Patient #: [id number] SSN: [id number] : 1935 Date of study: 09/06/2019 Page: Of Hemodynamic Procedure Report Patient Data Patient Demographics Procedure consent was obtained First Name: FEDERICO Gender: Male Last Name: YNES : 1935 Middle Initial: EDWARD Age: 84 year(s) Patient #: [id number] Race: SSN: [id number] Additional ID: [id number] Contact details Address: [address] [place] [address] State: [place] City: [place] Zip code: [address] Past Medical History Allergies: No known allergies Admission Admission Data Admission Date: 09/05/2019 Admission Time: 22:22 Arrival Date: 09/06/2019 Arrival Time: 0:00 Admit Source: Other Insurance Payor: Medicare Room #: D.[address] [facility] #: [id number] Height (in.): 66 BSA: 1.74 (m2) Height (cm.): 167.64 BMI: 23.13 (kg/m2) Weight (lbs.): 143.3 Weight (kg.): 65 Lab Results Lab Result Date: 09/06/2019 Lab Result Time: 0:00 Biochemistry Name Units Result Min Max BUN mg/dl 26 --(----)-* 7 18 CK-MB ng/ml 68.4 --(----)-* 0 3.6 Creatinine mg/dl 0.8 --(-*--)-- 0.6 1.3 eGFR ml/min 90 --(*---)-- 90 120 NONAFRICAN Troponin l ng/ml 13.578 --(----)-* 0 0.06 CBC Name Units Result Min Max Hematocrit % 37.1 *-(----)-- 42 54 Hemoglobin g/dl 12.5 *-(----)-- 13.5 17.5 Procedure Procedure Types Cath Procedure Diagnostic Procedure [facility] w/Coronaries Sedation Charges Moderate Sedation up to 30 minutes PCI Procedure Coronary Stent Coronary Stent Initial Hemochron ACT Test Procedure Description Procedure Date Procedure Date: 09/06/2019 Procedure Start Time: 10:56 Procedure End Time: 11:36 Procedure Staff Name Function Louis Sanderson MD Performing Physician Aniya Canseco RT Monitor Nikole Cornell RT Monitor Leslie Case RT Scrub Adriano Bergman RN Nurse Indication Chest pain Procedure Data Cath Procedure Fluoroscopy Diagnostic fluoroscopy Total fluoroscopy Time: 9.3 time: 9.3 min min Diagnostic fluoroscopy Total fluoroscopy dose: 908 dose: 908 mGy mGy Contrast Material Contrast Material Type Amount (ml) Isovue 370 132 Entry Location Entry Primary Successful Side Size Upsize Upsize Entry Closure Succes sful Closure Location (Fr) 1 (Fr) 2 (Fr) Remarks Device Remarks Femoral Right 5 Fr 6 Fr Exoseal artery Short Estimated blood loss: 10 ml Diagnostic catheters Device Type Used For End Catheter Placement MULTIPACK JL 4.0 5Fr Procedure catheter MULTIPACK 3DRC 5Fr Procedure catheter MULTIPACK Pigtail 5 Fr Procedure catheter Procedure Complications No complications Procedure Medications Medication Administration Route Dosage Oxygen etCO2 Nasal cannula 2 l/min Lidocaine 2% added to field 20 Heparin Flush Bag added to field 2 bags (1000units/500ml NS) 0.9% NaCl I.V. 100 ml/hr Versed I.V. 2 mg Fentanyl I.V. 50 mcg Versed I.V. 1 mg Fentanyl I.V. 50 mcg Versed I.V. 1 mg Heparin Bolus I.V. 6000 units Versed I.V. 1 mg Plavix P.O. 600 mg Hemodynamics Rest BSA: 1.74 (m2) HGB: 12.5 (g/dl) O2 Consumption: Estimated: 183.61 (ml/min) O2 Co nsumption indexed: Estimated:105.52 (ml/min/m) Heart Rate: 48 (bpm) Pressure Samples Time Site Value (mmHg) Purpose Heart Use Rate(bpm) 11:05 LV 165/12,43 Snapshot 56 11:06 AO 152/58(90) Pullback 55 11:06 LV 150/10,25 Pullback 55 Gradients Valve Time Site 1 Site 2 Mean SEP/DFP Peak To Heart Use (mmHg) (sec/min) Peak Rate (mmHg) (bpm) Aortic 11:06 LV AO 0 16 0 55 150/10,25 152/58(90) Calculations Valve P-P Mean Valve Index Valve Source Name Gradient Area Flow (cm2) Aortic 0 0 0 0 Snapshots Pre Cath Intra NCS Post Cath Vital Signs Time Heart Resp SPO2 etCO2 NIBP (mmHg) Rhythm Pain Sedation Rate (ipm) (%) (mmHg) Status Level (bpm) 10:45:33 63 16 96 27.1 165/80(122) NSR 0 (11) 10(A) , No pain 10:49:55 60 12 98 19.6 149/75(125) NSR 0 (11) 10(A) , No pain 10:54:21 45 46 95 0 137/63(113) SB 0 (11) 10(A) , No pain 10:58:44 48 48 97 1.5 139/64(116) SB 0 (11) 10(A) , No pain 11:03:04 49 11 94 0 140/68(122) SB 0 (11) 9(A) , No pain 11:07:26 53 25 95 0 140/69(120) SB 0 (11) 9(A) , No pain 11:11:46 58 13 94 0 136/71(109) SB 0 (11) 9(A) , No pain 11:16:06 58 34 96 0 141/68(116) SB 0 (11) 9(A) , No pain 11:20:24 58 13 92 0 133/69(107) SB 0 (11) 9(A) , No pain 11:25:50 57 10 97 12.8 137/77(94) SB 0 (11) 9(A) , No pain 11:30:10 57 46 97 18.1 153/76(125) SB 0 (11) 10(A) , No pain 11:34:28 59 24 94 9.8 156/76(120) SB 0 (11) 10(A) , No pain Medications Time Medication Route Dose Verified Delivered Reason Notes Effectiveness by by 10:48:30 Oxygen etCO2 2 Louis Buffie used for Nasal l/min Kin Bergman RN procedure cannula 10:49:38 Lidocaine 2% added 20ml Louis Louis for local to vial Kin Sanderson MD anesthetic field 10:49:43 Heparin Flush added 2 Loius Louis used for Bag to bags Kin Sanderson MD procedure (1000units/500ml field NS) 10:49:52 0.9% NaCl I.V. 100 Louis Buffie Per physician ml/hr Kin Bergman RN 10:55:18 Versed I.V. 2 mg Louis Buffie for sedation Kin Bergman RN 10:55:24 Fentanyl I.V. 50 Louis Buffie for sedation mcg Kin Bergman RN 10:58:52 Versed I.V. 1 mg Louis Buffie for sedation Kin Bergman RN 10:58:56 Fentanyl I.V. 50 Louis Buffie for sedation mcg Kin Bergman RN 11:09:26 Versed I.V. 1 mg Louis Buffie for sedation Kin Bergman RN 11:11:44 Heparin Bolus I.V. 6000 Louis Buffie for verif ied units Kin Bergman RN anticoagulation with dr sanderson 11:23:11 Versed I.V. 1 mg Louis Buffie for sedation Kin Bergman RN 11:33:41 Plavix P.O. 600 Louis Buffie for mg Kin Bergman RN antiplatelet therapy Procedure Log Time Note 10:13:17 Informed consent obtained and on chart 10:13:23 Diagnostic Cath Status : Urgent 10:13:45 Indication : Chest pain 10:14:27 Lab Result : Creatinine 0.8 mg/dl 10:14:27 Lab Result : BUN 26 mg/dl 10:14:27 Lab Result : Hemoglobin 12.5 g/dl 10:14:27 Lab Result : eGFR NONAFRICAN 90 ml/min 10:14:28 Lab Result : Hematocrit 37.1 % 10:14:53 Arrival Date: 09/06/2019 12:00:00 AM 10:14:54 Admit Source: Other 10:15:03 Patient Height : 66 inches 10:15:08 Patient Weight : 143.3 lbs 10:15:30 Insurance Payor : Medicare 10:28:30 Procedure Status Urgent Heart Cath (IP). 10:28:35 Adriano Bergman RN sent for patient. Start room use. 10:28:37 Time tracking: Regular hours (M-F 7:00 - 5:00) 10:28:42 Plan of Care:Hemodynamics will remain stable., Cardiac rhythm will remain stable., Comfort level will be maintained., Respiratory function will remain adequate., Patient/ family verbilizes understanding of procedure., Procedure tolerated without complication., Recovers from procedure without complications.. 10:31:01 Lab Result : Troponin l 13.578 ng/ml 10:31:01 Lab Result : CK-MB 68.4 ng/ml 10:31:28 UNABLE TO DOCUMENT SCAI RISK ASSESSMENT DUE TO WEBSITE DOWN. 10:35:29 Patient received from Med II to CCL 1 Alert and oriented. Tansferred to table in Supine position. 10:35:31 Warm blankets applied, and tayler hugger turned on for patient comfort. 10:35:32 Correct patient and procedure confirmed by team. 10:35:33 ECG and BP/O2 sat monitors applied to patient. 10:35:37 Signed procedure consent form obtained from patient. 10:44:19 Vital chart was started 10:45:55 Full Disclosure recording started 10:46:07 Pre-procedure instructions explained to patient. 10:46:07 Pre-op teaching completed and patient verbalized understanding. 10:46:17 Family unavailable. 10:46:19 Patient NPO since Midnight. 10:46:42 Patient allergic to No known allergies 10:46:44 Is the patient allergic to Iodine/contrast media? No. 10:47:23 Patient diabetic? No. 10:47:26 If diabetic: On Metformin? N/A 10:47:27 ----Pre-sedation anethsthesia assessment.---- 10:47:31 Previous problem with sedation/anesthesia? No ? 10:47:34 Snore? Yes 10:47:36 Sleep apnea? No 10:47:38 Deviated septum? No 10:47:40 Opens mouth fully? Yes 10:47:41 Sticks out tongue? Yes 10:48:25 Airway obstruction? No ? 10:48:27 Dentures? No ? 10:48:30 Oxygen 2 l/min etCO2 Nasal cannula was administered by Adriano Bergman RN; used for procedure; Verbal order read back and verified. 10:48:30 Pre procedure: right dorsailis pedis pulse 2+ Normal; easily identifiable; not easily obliterated 10:48:35 Patient pain scale 0/10 ?. 10:48:55 IV patent on arrival in right antecubital with 0.9% NaCl at KVO. 10:49:09 Lab results completed and on chart. 10:49:13 Stress Test: no; N/A ? 10:49:16 Right groin area was prepped with chlora-prep and draped in sterile fashion 10:49:18 Alarms reviewed by R. N. 10:49:18 Sharps counted by scrub and verified by R.N. 10:49:30 Use device set Femoral Dx 10:49:31 ACIST Syringe (44500) opened to sterile field. 10:49:32 Bag Decanter (2002S) opened to sterile field. 10:49:33 Medline Cath Pack ([id number]) opened to sterile field. 10:49:34 ACIST Hand Control (24946) opened to sterile field. 10:49:35 ACIST Manifold (96624) opened to sterile field. 10:49:36 DIAGNOSTIC Multipack 5Fr catheter set (EB1205) opened to sterile field. 10:49:38 Lidocaine 2% 20ml vial added to field was administered by Louis Sanderson MD; for local anesthetic; Verbal order read back and verified. 10:49:38 EXOSEAL 5Fr (EX500) opened to sterile field. 10:49:39 SHEATH 5FR [place] (TCX548) opened to sterile field. 10:49:40 Tegaderm 4 x 4 (1626W) opened to sterile field. 10:49:43 Heparin Flush Bag (1000units/500ml NS) 2 bags added to field was administered by Louis Sanderson MD; used for procedure; Verbal order read back and verified. 10:49:48 EMERALD Guide Wire (108-008) opened to sterile field. 10:49:52 0.9% NaCl 100 ml/hr I.V. was administered by Adriano Bergman RN; Per physician; Verbal order read back and verified. 10:51:59 Is patient on blood thinner?No 10:52:48 Rhythm: sinus rhythm 10:52:51 Baseline sample Acquired. 10:53:29 ACC Patient presents with Non-STEMI CCS Anginal Class 2--Slight limitation of ordinary activity. 10:54:26 --------ALL STOP TIME OUT------ :54:26 Final Timeout: patient, procedure, and site verified with staff and physician. All members of the team are in agreement. 10:54:28 Right groin site verified by team. 10:54:33 Fire Safety Assessment: A--An alcohol-based skin anteseptic being used preoperatively., C--Open oxygen or nitrous oxide is being used., D--An ESU, laser, or fiber-optic light is being used. 10:54:36 Physical assessment completed. ASA score P 2 - A patient with mild systemic disease as per Louis Sanderson MD. 10:54:39 1) 90+ Normal kidney functon but urine findings or structural abnormalities or genetic trait point to kidney disease. 10:54:42 Maximum allowable contrast dose (3.7 X eGFR X 0.75)250 ml. 10:54:47 Sedation plan: IV Moderate Sedation Medication:Versed, Fentanyl 10:55:18 Versed 2 mg I.V. was administered by Adriano Bergman RN; for sedation; Verbal order read back and verified. 10:55:24 Fentanyl 50 mcg I.V. was administered by Adriano Bergman RN; for sedation; Verbal order read back and verified. 10:56:34 Procedure started. 10:56:47 Local anesthetic to right femoral artery with Lidocaine 2% by Louis Sanderson MD.INITIAL ACCESS ONLY 10:58:28 A 5 Fr sheath was inserted into the Right Femoral artery 10:58:35 A MULTIPACK JL 4.0 5Fr catheter was advanced over the wire and used for Procedure. 10:58:52 Versed 1 mg I.V. was administered by Adriano Bergman RN; for sedation; Verbal order read back and verified. 10:58:56 Fentanyl 50 mcg I.V. was administered by Adriano Bergman RN; for sedation; Verbal order read back and verified. 10:59:36 LCA angiography performed. 11:01:14 Catheter exchanged over wire. 11:01:19 A MULTIPACK 3DRC 5Fr catheter was advanced over the wire and used for Procedure. 11:02:58 RCA angiography performed. 11:03:00 ACCDominant side:Right 11:03:18 Catheter exchanged over wire. 11:03:23 A MULTIPACK Pigtail 5 Fr catheter was advanced over the wire and used for Procedure. 11:04:47 Injector settings: Ml/sec: 10, Volume: 20, 11:05:25 LV hemodynamics recorded. 11:05:28 LV gram done using TABOR 11:05:58 EF : 20 % 11:06:31 Catheter exchanged over wire. 11:06:32 Proceeding to intervention. 11:06:40 Use device set SANDERSON PCI 11:06:49 TUBING High Pressure Extension Tubing (Sanderson) ([id number]) opened to sterile field. 11:06:50 INFLATOR Merit BasixCompak (FM5716) opened to sterile field. 11:06:55 SHEATH 6FR [place] (LPZ586) opened to sterile field. 11:07:08 Sheath upsized to a 6 Fr Short. 11:09:26 Versed 1 mg I.V. was administered by Adriano Bergman RN; for sedation; Verbal order read back and verified. 11:09:32 BMW 300cm [place] 2 J wire ([id number]) opened to sterile field. 11:10:31 GUIDE 6FR XBLAD 3.5 catheter ([id number]) opened to sterile field. 11:10:40 6 Fr XBLAD 3.5 guide catheter was inserted over the wire 11:10:53 BMW 300 wire advanced. 11:11:20 Pre PCI Site: Tribe Diag1 has 90% stenosis. 11:11:44 Heparin Bolus 6000 units I.V. was administered by Adriano Bergman RN; for anticoagulation; verified with dr sanderson Verbal order read back and verified. 11:14:15 Wire advanced across lesion. 11:17:10 The SMITHA RX 2.5 x 12 stent ([id number]) was advanced then removed because of failure to cross lesion 11:18:07 MINAMO 190 USED FOR KIKE WIRE. 11:18:20 Asahi Minamo 190cm wire opened to sterile field. 11:22:43 Stent balloon re-inserted over wire. 11:23:11 Versed 1 mg I.V. was administered by Adriano Bergman RN; for sedation; Verbal order read back and verified. 11:24:32 Place stent Inflation Number: 1 A SMITHA RX 2.5 x 12 stent ([id number]) was prepped and advanced across the 1st Diag . The stent was deployed at 12 ISMA for 0:00 (min:sec) . 11::29 Inflation number: 2 The stent balloon was then re-inflated across the 1st Diag to 7 ISMA for 0:00 (min:sec) . 11::44 Inflation number: 3 The stent balloon was then re-inflated across the 1st Diag to 10 ISMA for 0:00 (min:sec) . 11:29:37 Stent catheter was removed intact over wire. 11::37 Wire removed. 11::38 Guide catheter removed. 11:30:53 EXOSEAL 6Fr (EX600) opened to sterile field. 11:31:06 Sheath removed intact; hemostasis achieved with Exoseal to the Right Femoral artery. 11::28 Procedure ended.(Physican Out) 11:31:39 Fluoroscopy time 09.30 minutes. 11::43 Fluoroscopy dose: 908 mGy 11::43 Flurop Dose total: 908 11:31:50 Dose Area Product 76901 mGy/cm. 11:32:03 Contrast amount:Isovue 370 132ml. 11:32:08 Maximum allowable dose exceeded? No. 11:32:09 Sharps counted by scrub and verified by R.N. 11:32:44 Post-op/insertion site Right Femoral artery dressed using a 4 x 4 and Tegaderm. 11:32:52 Post right femoral artery:stable, soft, clean and dry 11:32:54 Post Procedure Pulses reassessed and unchanged 11:32:58 Post procedure: right dorsailis pedis pulse 2+ Normal; easily identifiable; not easily obliterated. 11:33:02 Post-procedure physical assessment completed. ASA score P 2 - A patient with mild systemic disease as per Louis Sanderson MD. 11:33:07 Post procedure rhythm: unchanged. 11:33:11 Estimated blood loss: 10 ml 11:33:13 Post procedure instruction explained to patient.Patient verbalizes understanding. 11:33:14 Patient needs reinforcement of post procedure teaching. 11:33:22 [facility] Findings: MVD- PCI performed (see procedure note) 11:33:28 Procedure Complication : No complications 11:33:41 Plavix 600 mg P.O. was administered by Adriano Bergman RN; for antiplatelet therapy; Verbal order read back and verified. 11:34:31 Procedure type changed to Cath procedure, Diagnostic procedure, LHC, LHC w/Coronaries, Sedation Charges, Moderate Sedation up to 30 minutes, PCI procedure, Coronary Stent, Coronary Stent Initial, Hemochron ACT Test 11:34:32 Procedure and supply charges have been captured, reviewed, submitted and are correct. 11:35:52 ACT drawn and resulted at 340 seconds. (normal therapeutic range 180-240 seconds). 11:36:08 Operative report dictated upon procedure completion. 11:36:09 See physician's report for complete and final results. 11:36:15 Vital chart was stopped 11:36:44 Report given to [facility]. 11:36:47 Patient transfered to [facility] with Bed. 11:36:51 Procedure ended. 11:36:51 Full Disclosure recording stopped 11:37:01 ACC-PCI Only Patient was given prescriptions, or instructed by Louis Sanderson MD to start/continue the following medications upon discharge: Plavix 11:37:02 End room use (Document Last) 11:37:14 End room use (Document Last) 11:37:30 End room use (Document Last) Intervention Summary Intervention Notes Time ActionType Lesion and Equipment Used Action# Pressure Duration Attributes 11:17:10 Discard SMITHA RX 2.5 x Stent 12 stent ([id number]) 11:24:32 Place stent 1st Diag SMITHA RX 2.5 x 1 12 00:00 12 stent ([id number]) 11:25:29 Reinflate 1st Diag SMITHA RX 2.5 x 2 7 00:00 stent 12 stent balloon ([id number]) 11:28:44 Reinflate 1st Diag SMITHA RX 2.5 x 3 10 00:00 stent 12 stent balloon ([id number]) Device Usage Item Name Manufacture Quantity Catalog Hospital Part [facility] Lot# / Number Charge Number Stock Stock Serial# Code ACIST Syringe Acist 1 86488 762565 192123 286079 20 (94200) [employer] Systems Inc Bag Decanter Microtek 1 988250 15169 271546 5 () Medical Inc. Medline Cath Medline 1 [id number] 173229 03516 430414 5 Pack ([id number]) ACIST Hand Acist 1 71957 193797 004223 661960 5 Control Medical (18766) [employer] ACIST Manifold Acist 1 81475 052665 256709 508775 5 (01954) Medical Systems Inc DIAGNOSTIC Cardinal 1 SI3334 558273 36641 371950 30 Multipack 5Fr Health catheter set (SC3569) EXOSEAL 5Fr Cardinal 1 EX500 201462 306855 010629 10 (EX500) Health SHEATH 5FR Terumo 1 UJQ616 624274 281310 013592 5 [place] (HZY997) Tegaderm 4 x 4 3M 1 1626W 451823 669145 899037 5 (1626W) EMERALD Guide Cardinal 1 502-455 316916 623090 309183 5 Wire (502-455) Health MULTIPACK JL Cardinal 1 610934 5 4.0 5Fr Health catheter MULTIPACK 3DRC Cardinal 1 787494 5 5Fr catheter Health MULTIPACK Cardinal 1 354062 5 Pigtail 5 Fr Health catheter TUBING High Merit 1 [id number] 397444 82993 982700 10 Pressure Medical Extension Tubing (Kin) (TD9658T) INFLATOR Merit Merit 1 CD0828 070390 640359 788104 15 BasixCompak Medical (NX4128) SHEATH 6FR Terumo 1 WNM008 506242 953613 227321 40 [place] (IKJ937) BMW 300cm Peres 1 [id number] 886033 335778 531126 5 [place] 2 J Vascular wire (9454018G) GUIDE 6FR Cardinal 1 24875164 831549 698042 421430 10 XBLAD 3.5 Health catheter (91396119) SMITHA RX 2.5 x Medtronic 1 [id number] 866927 8273565 583172 5 [id number] 12 stent ([id number]) [facility] Intecc 1 [id number] 317820 9022982 4491178 0 190cm wire EXOSEAL 6Fr Cardinal 1 EX600 842729 143462 010814 10 (EX600) Health Signature Audit Streeter Stage Time Signature Unsigned Intra-Procedure 09/06/2019 Aniya Canseco 11:37:14 AM RT(R) Intra-Procedure 09/06/2019 Adriano Bergman RN 11:37:30 AM Intra-Procedure 09/06/2019 Louis Sanderson MD 11:37:[address] [facility] [address] [place] [address]
[~2019-09-05 20:27] MED LIST changes: +LIPITOR10 MG PO; -PLAVIX75 MG; +PLAVIX75 MG PO
--- NOTE | 2019-09-05 20:44 | NUR ---
[facility] ADMINISTERED LIDOCAINE 65 MG AT 1900 AND 1905 STARTED LIDOCAINE DRIP AND 20MG/MIN AND NS AT 125ML/HR
[2019-09-05 22:08] LABS: CKMB 37.9 U/L (0.0-3.6); CREATINE KINASE 195 UL (21-232)
[2019-09-05 22:11] LABS: TROPONIN-I 1.849 ng/mL (0.000-0.060)
--- NOTE | 2019-09-05 22:43 | NUR ---
PT PHONE NUMBER IS [phone]
--- NOTE | 2019-09-05 22:55 | NUR ---
called report to lorena at this time. room is clean
--- NOTE | 2019-09-05 23:54 | NUR ---
PATIENT ARRIVED FROM ER VIA STRETCHER. PATIENT IS ALERT AND ORIENTED, RESTING COMFORTABLY IN BED. RESPIRATIONS ARE EVEN AND UNLABORED. PATIENT REMAINS ON 2L NC. NO S/S OF DISTRESS. NO C/O PAIN. PATIENT ORIENTED TO UNIT. NEEDS MET AT THIS TIME. CALL LIGHT WITHIN REACH. WILL CPOC.
[2019-09-06 01:04] VITALS: BP 156/75
[2019-09-06 04:00] VITALS: BP 107/62
[2019-09-06 06:22] LABS: BASOPHILS 0.2 % (0-2); EOSINOPHILS 0.1 % (0-7); HEMATOCRIT 37.1 % (42.0-54.0); HEMOGLOBIN 12.5 g/dL (13.5-17.5); IMMATURE GRANULOCYTES 0.1 % (0-5); LYMPHOCYTES 13.2 % (15-50); MCH 30.3 pg (26.0-34.0); MCHC 33.7 g/dL (31.0-37.0); MEAN PLATELET VOLUME 10.6 fL (7.4-10.4); MONOCYTES 5.4 % (2-11); PLATELET COUNT 230 10x3/uL (130-400); RBC 4.12 10x6/uL (4.20-6.10); RDW 13.4 % (11.5-14.5); WBC 9.9 10x3/uL (4.8-10.8)
[2019-09-06 06:59] LABS: APTT 34.8 SECONDS (22.8-39.4); INR 1.13 (0.85-1.17); PROTIME 14.4 SECONDS (11.6-15.0)
[2019-09-06 07:18] LABS: ALBUMIN 3.3 g/dL (3.4-5.0); ALKALINE PHOSPHATASE 55 U/L (46-116); ALT (SGPT) 20 U/L (10-68); BILIRUBIN - TOTAL 0.61 mg/dL (0.2-1.3); CALC OSMOLALITY 282 mosm/kg (275-300); CALCIUM 8.5 mg/dL (8.5-10.1); CARBON DIOXIDE 32.1 mmol/L (21.0-32.0); CHLORIDE - SERUM 103 mmol/L (98-107); CKMB 68.4 U/L (0.0-3.6); CREATININE - SERUM 0.8 mg/dL (0.6-1.3); GLUCOSE 102 mg/dL (74-106); MAGNESIUM - SERUM 2.1 mg/dL (1.8-2.4); PHOSPHOROUS 3.9 mg/dL (2.5-4.9); POTASSIUM - SERUM 4.5 mmol/L (3.5-5.1); PRO BNP 6461 pg/mL (0-450); PROTEIN - SERUM 6.4 g/dL (6.4-8.2); SODIUM 139 mmol/L (136-145); UREA NITROGEN 26 mg/dL (7-18); eGFR NON AFRICAN AMERICAN > 90 mL/min (90-120)
[2019-09-06 07:22] LABS: CREATINE KINASE 368 UL (21-232)
[2019-09-06 07:23] LABS: TROPONIN-I 13.578 ng/mL (0.000-0.060)
[2019-09-06 07:58] VITALS: BP 158/63
[2019-09-06 08:01] LABS: CHOL - HDL RATIO 3.6 ratio (2.3-4.9); LDL-HDL RATIO 2.3 ratio (1.5-3.5)
[2019-09-06] MEDS ORDERED: HYDROCHLOROTH12.5 M1 PO (10:07)
[2019-09-06 10:10] VITALS: BP 158/63; BMI 22.1
--- NOTE | 2019-09-06 10:26 | NUR ---
CONSENTS SIGNED, PRE-OPS GIVEN. LEAVING TO COMMERCIAL APPRAISER BY BED.
--- NOTE | 2019-09-06 12:07 | NUR ---
BACK FROM SKEWER UP. VS WNL. RIGHT GROIN STABLE WITHOUT BLEEDING OR HEMATOMA NOTED. WILL MONITOR.
[2019-09-06 14:56] VITALS: Ht 167.6 cm; Wt 62.3 kg
--- NOTE | 2019-09-06 16:04 | NUR ---
BED REST UP. GROIN STABLE,.
--- NOTE | 2019-09-06 16:12 | NUR ---
IV AND TELEMETRY DCD. DC PLANS GIVEN. UNDERSTANDING VOICED. ESCORTED TO LOBBY.
--- NOTE | 2019-09-06 16:22 | MORECARE ---
CASE MANAGEMENT DISCHARGE SUMMARY PATIENT: FEDERICO QUICK UNIT: [id number] ADM DATE: 09/05/19 AGE: 84 : 36 SEX: M ROOM/BED: D.5376 AUTHOR: JACQUELINEDOC PHYSICIAN: REFERRING PHYSICIAN: MEGHANA DEE MD DATE OF SERVICE: 09/06/19 Discharge Plan Patient Name: FEDERICO QUICK Facility: [facility]:[place] : 1935 Planned Disposition: Home Anticipated Discharge Date: 09/06/19 Discharge Date: 09/06/2019 Expected LOS: 1 Initial Reviewer: [email or web address] Initial Review Date: 09/06/2019 Generated: 09/06/19 5:22 pm Comments DCP- Discharge Planning Updated by [email or web address]: John Monique on 09/06/19 3:[address] Patient Name: FEDERICO QUICK Admission Status: ER Accout number: [id number] Admission Date: 09-05-2019 : 1935 Admission Diagnosis: Attending: MEGHANA DEE Current LOS: 1 Anticipated DC Date: 09-06-2019 Planned Disposition: Home Primary Insurance: [employer] MEDICARE PPO or HMO Discharge Planning Comments: CM MET WITH PT AND SPOUSE IN ROOM TO DISCUSS DISCHARGE PLANNING AND NEEDS. FEDERICO QUICK provided verbal consent to discuss current and ongoing needs with/in the presence of: SPOUSE, MYRTLE. PT REPORTS LIVING AT HOME INDEPENDENTLY WITH SPOUSE. PT HAS WALKER WITH NO MEDICAL EQUIPMENT PROVIDER PREFERENCE. PT HAS NO OUTSIDE SERVICES ASSISTING IN THE HOME. CM DISCUSSED AVAILABILITY OF HOME HEALTH, REHAB SERVICES AND MEDICAL EQUIPMENT. PT DENIES DISCHARGE NEEDS, REPORTS HIS WILL PICK HIM UP FOR DISCHARGE HOME TODAY. MARKETING PROPOSAL SPECIALIST NURSE NOTIFIED. Carousel Attendant: John Monique DCPIA - Discharge Planning Initial Assessment Updated by [email or web address]: John Monique on 09/06/19 4:12 pm * Is the patient Alert and Oriented? Yes * How many steps to enter\exit or inside your home? NONE * PCP DR. ADDIE COTA, [place] [facility] * Pharmacy [facility] IN [place] * Preadmission Environment Home with Family * ADLs Independent * Equipment Walker * Other Equipment NO MEDICAL EQUIPMENT PROVIDER PREFERNECE * List name and contact numbers for known caregivers / representatives who currently or will assist patient after discharge: NOEL QUICK, SPOUSE, * Verbal permission to speak to the caregivers and representatives has been obtained from the patient. Yes * Community resources currently utilized None * Please name any agencies selected above. NONE * Additional services required to return to the preadmission environment? No * Can the patient safely return to the preadmission environment? Yes * Has this patient been hospitalized within the prior 30 days at any hospital? No Patient Name: FEDERICO QUICK Page [id number] at 1622 All edits/amendments must be made on the electronic document DICTATION DATE: 09/06/191621 MATERIAL HANDLER FLOORPERSON: MOISÉS 09/06/191621 RPT#: [id number] DC DATE:09/06/19 STATUS: DIS IN [address] [place] [address] END OF REPORT
== END 2019-09-06 16:13 | disposition home or self-care (01) | DRG 247 ==
LOC: D.ER 20:27 → D.M2 22:22 → D.SDCHOLD 09-06 13:59 → D.M2 09-06 16:13
PROVIDERS: Family Medicine; Internal Medicine Cardiovascular Disease; ADMIT Internal Medicine Nephrology; ATTEND Internal Medicine Nephrology
PROC: B2111ZZ Fluoroscopy of Multiple Coronary Arteries using Low Osmolar Contrast (ICD-10-PCS; 2019-09-06)
PROC: B2151ZZ Fluoroscopy of Left Heart using Low Osmolar Contrast (ICD-10-PCS; 2019-09-06)
PROC: 027034Z Dilation of Coronary Artery, One Artery with Drug-eluting Intraluminal Device, Percutaneous Approach (ICD-10-PCS; principal; 2019-09-06 10:28)
PROC: 4A023N7 Measurement of Cardiac Sampling and Pressure, Left Heart, Percutaneous Approach (ICD-10-PCS; 2019-09-06 10:28)
DX: I21.4 Non-ST elevation (NSTEMI) myocardial infarction (principal); I42.9 Cardiomyopathy, unspecified; N17.9 Acute kidney failure, unspecified; I10 Essential (primary) hypertension; E78.5 Hyperlipidemia, unspecified; I25.118 Atherosclerotic heart disease of native coronary artery with other forms of angina pectoris; D64.9 Anemia, unspecified